=== PATIENT | female | born 1960 | race Caucasian/White ===

== ENCOUNTER 2018-01-21 11:45 | Outpatient (CLI) | payer MEDICAID | END 2018-01-21 23:59 | disposition home or self-care (01) | LOC: LAB 11:45 | PROVIDERS: ATTEND Physician Assistant | DX: Z01.89 Encounter for other specified special examinations (principal); E03.9 Hypothyroidism, unspecified | CPT/HCPCS: 36415; 84443; 86803 ==

== ENCOUNTER 2018-03-13 11:23 | Outpatient (CLI) | payer MEDICAID ==
[2018-03-13 12:15] LABS: BASOPHILS % (AUTO) 0.5 % (0-1); EOSINOPHILS % (AUTO) 0.3 % (0-6); HEMATOCRIT 37.7 % (35.0-45.0); HEMOGLOBIN 12.5 g/dl (12.0-16.0); LYMPHOCYTES # (AUTO) 1.3 X10'3 (1.1-4.8); LYMPHOCYTES % (AUTO) 15.3 % (21-51); MEAN CORPUSCULAR HEMOGLOBIN 28.7 PG (27.0-31.0); MEAN CORPUSCULAR HGB CONC 33.3 % (33.0-36.5); MEAN CORPUSCULAR VOLUME 86.4 FL (78-98); MEAN PLATELET VOLUME 8.3 FL (7.4-10.4); MONOCYTES # (AUTO) 0.6 X10'3 (0-0.9); MONOCYTES % (AUTO) 6.6 % (2-12); NEUTROPHILS # (AUTO) 6.6 X10'3 (1.8-7.7); NEUTROPHILS % (AUTO) 77.3 % (42-75); PLATELET COUNT 310 X10'3 (140-440); RED BLOOD COUNT 4.36 X10'6 (4.20-5.60); RED CELL DISTRIBUTION WIDTH 13.9 % (11.5-14.5); WHITE BLOOD COUNT 8.6 X10'3 (4.5-11.0)
[2018-03-13 12:46] LABS: ALANINE AMINOTRANSFERASE 26 U/L (12-78); ALBUMIN 3.9 G/DL (3.4-5.0); ALBUMIN/GLOBULIN RATIO 1.1 (1.1-1.5); ALKALINE PHOSPHATASE 76 IU/L (46-116); ANION GAP 9 (8-16); ASPARTATE AMINO TRANSFERASE 14 U/L (10-37); BILIRUBIN,TOTAL 0.2 MG/DL (0.1-1.0); BLOOD UREA NITROGEN 9 MG/DL (7-18); BUN/CREATININE RATIO 10.6 (6.6-38.0); CALCIUM 9.7 MG/DL (8.5-10.1); CHLORIDE 102 MMOL/L (99-107); CREATININE 0.85 MG/DL (0.40-0.90); GLUCOSE 94 MG/DL (70-104); SODIUM 138 MMOL/L (135-145); TOTAL CARBON DIOXIDE 27.5 MMOL/L (24-32); TOTAL PROTEIN 7.6 G/DL (6.4-8.2); eGFR 69 ML/MIN
[2018-03-13 15:13] LABS: HIV ANTIBODY 1&2 RAPID NON-REACTIVE (Neg)
[2018-03-14 08:15] LABS: RPR Non Reactive (Non Reactive); VITAMIN D, 25-HYDROXY 68.9 ng/mL (30.0-100.0)
[2018-03-14 11:14] LABS: HEPATITIS C ANTIBODY <0.1 s/co ratio (0.0-0.9)
== END 2018-03-13 23:59 | disposition home or self-care (01) ==
LOC: LAB 11:23
PROVIDERS: ATTEND Nurse Practitioner Family
DX: R53.82 Chronic fatigue, unspecified (principal); Z72.51 High risk heterosexual behavior
CPT/HCPCS: 36415; 80053; 82306; 85025; 86592; 86703; 86706; 86708; 86803; 87491

== ENCOUNTER 2018-07-02 11:43 | Outpatient (CLI) | payer MEDICAID ==
[2018-07-02 12:58] LABS: CHOL/HDL RATIO 2.3 (0.00-4.99); CHOLESTEROL 150 MG/DL (0-200); HDL CHOLESTEROL 65 MG/DL (35-60); LDL CHOLESTEROL 69 MG/DL (50-100); TRIGLYCERIDES 78 MG/DL (20-135)
== END 2018-07-02 23:59 | disposition home or self-care (01) ==
LOC: LAB 11:43
PROVIDERS: ATTEND Family Medicine
DX: E78.5 Hyperlipidemia, unspecified (principal); E03.9 Hypothyroidism, unspecified
CPT/HCPCS: 36415; 80061; 84443

== ENCOUNTER 2023-10-21 13:32 | Outpatient (CLI) | payer MEDICAID ==
[2023-10-22] MEDS ORDERED: GADOTERATE MEGLUMINE 7.5 MMOL/15 ML VIAL IV ONE (08:30)
== END 2023-10-21 23:59 | disposition home or self-care (01) ==
LOC: MRI 13:32
PROVIDERS: ATTEND Nurse Practitioner Family
DX: M75.42 Impingement syndrome of left shoulder (principal); M89.312 Hypertrophy of bone, left shoulder; R22.32 Localized swelling, mass and lump, left upper limb
CPT/HCPCS: 73218; A9575